=== PATIENT | female | born 1945 | race Caucasian/White ===

== ENCOUNTER 2017-08-22 10:54 | Emergency (ER) | payer MEDICARE ==
[~2017-08-22] VITALS: Ht 162.6 cm; Wt 69.0 kg
[2017-08-22 11:05] VITALS: BP 119/68; PULSE 84; RESP 16; TEMP 99.1; O2SAT 98
--- NOTE | 2017-08-22 11:34 | PD ---
HPI Chief Complaint: Musculoskeletal Complaint Time Seen by Provider: 11:30 Travel History International Travel<30 days: No Contact w/Intl Traveler<30days: No Traveled to known affect area: No History of Present Illness HPI 71-year-old female patient with previous history of hypothyroidism, previous [place] , states that she just got off a cruise and yesterday started having sudden onset of right upper leg pains, the pain seems to radiate from the right anterior inguinal area towards the inner part of her thigh, has trouble with bending her knee and her hip because of pain. She denies any chest pains, shortness of breath, or any other symptoms. She talked to her primary care doctor and orthopedics doctor and was told to come to the ER to evaluate for DVT. Pain is rated at a 10 out of 10. Modifying Factors: Worse with bending hip and knee Associated Signs & Symptoms: Right leg pain Risk Factors: None PFSH Past Medical History Hx Anticoagulant Therapy: No Cardiovascular Problems: No (AR ?) Respiratory: Yes (asthma) ?: Not Past Surgical History Hysterectomy: Yes Social History Tobacco Use: No Allergies-Medications (Allergen,Severity, Reaction): Coded Allergies: Sulfa (Sulfonamide Antibiotics) (Verified Allergy, Intermediate, rash, ) Reported Meds & Prescriptions Reported Meds & Active Scripts Active Reported Nexium (Esomeprazole DR) 40 Mg Capdr 40 Mg PO DAILY Synthroid (Levothyroxine Sodium) 75 Mcg Tab 75 Mcg PO DAILY Review of Systems Except as stated in HPI: all other systems reviewed are Neg Physical Exam Narrative GENERAL: Well-developed elderly white female patient currently in mild distress. Awake and oriented 3. SKIN: Focused skin assessment warm/dry. HEAD: Atraumatic. Normocephalic. EYES: Pupils equal and round. No scleral icterus. No injection or drainage. ENT: No nasal bleeding or discharge. Mucous membranes pink and moist. NECK: Trachea midline. No JVD. Supple. CARDIOVASCULAR: Regular rate and rhythm. No murmur appreciated. RESPIRATORY: No accessory muscle use. Clear to auscultation. Breath sounds equal bilaterally. GASTROINTESTINAL: Abdomen soft, non-tender, nondistended. Hepatic and splenic margins not palpable. MUSCULOSKELETAL: No obvious deformities. No clubbing. No cyanosis. No edema. EXTREMITIES: No clubbing, cyanosis, or edema. No joint tenderness, effusion, or edema noted. No calf or posterior knee tenderness. She is tender palpation in the right anterior inguinal area going down the inner part of her thigh with no significant edema or palpable cords. NEUROLOGICAL: Awake and alert. No obvious cranial nerve deficits. Motor grossly within normal limits. Normal speech. PSYCHIATRIC: Appropriate mood and affect; insight and judgment normal. Data Data Last Documented VS Vital Signs Date Time Temp Pulse Resp B/P (MAP) Pulse Ox O2 Delivery O2 Flow Rate FiO2 08/22/17 11:05 99.1 84 16 119/68 (85) 98 Orders Orders Complete Blood Count With Diff (08/22/17 11:30) Basic Metabolic Panel (Bmp) (08/22/17 11:30) Prothrombin Time / Inr (Pt) (08/22/17 11:30) Act Partial Throm Time (Ptt) (08/22/17 11:30) Us Leg Venous Doppler (08/22/17 11:30) Hip, Uni(Ap&Lat) W Ap Pelvis (08/22/17 11:30) Ed Discharge Order (08/22/17 12:37) Labs Laboratory Tests Test 08/22/17 12:00 White Blood Count 5.6 TH/MM3 Red Blood Count 4.24 MIL/MM3 Hemoglobin 11.9 GM/DL Hematocrit 36.7 % Mean Corpuscular Volume 86.6 FL Mean Corpuscular Hemoglobin 28.0 PG Mean Corpuscular Hemoglobin Concent 32.4 % Red Cell Distribution Width 12.8 % Platelet Count 300 TH/MM3 Mean Platelet Volume 7.6 FL Neutrophils (%) (Auto) 47.6 % Lymphocytes (%) (Auto) 36.0 % Monocytes (%) (Auto) 10.2 % Eosinophils (%) (Auto) 4.2 % Basophils (%) (Auto) 2.0 % Neutrophils # (Auto) 2.7 TH/MM3 Lymphocytes # (Auto) 2.0 TH/MM3 Monocytes # (Auto) 0.6 TH/MM3 Eosinophils # (Auto) 0.2 TH/MM3 Basophils # (Auto) 0.1 TH/MM3 CBC Comment DIFF FINAL Differential Comment Prothrombin Time 10.3 SEC Prothromb Time International Ratio 1.0 RATIO Activated Partial Thromboplast Time 24.7 SEC Blood Urea Nitrogen 13 MG/DL Creatinine 0.93 MG/DL Random Glucose 101 MG/DL Calcium Level 8.4 MG/DL Sodium Level 140 MEQ/L Potassium Level 4.3 MEQ/L Chloride Level 106 MEQ/L Carbon Dioxide Level 28.2 MEQ/L Anion Gap 6 MEQ/L Estimat Glomerular Filtration Rate 59 ML/MIN MDM Medical Decision Making Medical Screen Exam Complete: Yes Emergency Medical Condition: Yes Medical Record Reviewed: Yes Interpretation(s) Laboratory Tests Test 08/22/17 12:00 Monocytes (%) (Auto) 10.2 % (0.0-8.0) Eosinophils (%) (Auto) 4.2 % (0.0-4.0) Calcium Level 8.4 MG/DL (8.5-10.1) Estimat Glomerular Filtration Rate 59 ML/MIN (>89) Last 24 hours Impressions Lower Extremity Ultrasound 08/22/17 1130 Signed Impressions: Service Date/Time: Tuesday, August 22, 2017 12:13 - CONCLUSION: Negative exam with no evidence of deep venous thrombosis. Da Ac MD Hip and Pelvis X-Ray 08/22/17 1130 Signed Impressions: Service Date/Time: Tuesday, August 22, 2017 11:36 - CONCLUSION: The right hip is intact. Da Ac MD Differential Diagnosis Right leg pains: DVT versus groin strain versus arthritis Narrative Course Ultrasound shows no signs of DVT. X-ray did not show any significant acute bony injuries. Story is much more consistent with a groin strain. At this point, my plan would be to give her symptomatic relief or pain, muscle relaxant , released with follow-up to primary care doctor. Return for any worsening in symptoms as necessary. The plan has been discussed with her and she states understanding. Diagnosis Primary Impression: Strain of right knee and leg Med/Other Pt SpecificInfo: Prescription(s) given Scripts Cyclobenzaprine (Flexeril) 10 Mg Tab 10 MG PO TID for Muscle Spasm, #20 TAB 0 Refills Prov: Shannen Hardy MD 08/22/17 Ibuprofen (Ibuprofen) 600 Mg Tab 600 MG PO Q6H Y for Pain/Inflammation, #20 TAB 0 Refills Prov: Shannen Hardy MD 08/22/17 Disposition: 01 DISCHARGE HOME Condition: Stable Shannen Hardy MD Aug 22, 2017 11:34
[2017-08-22] MEDS ORDERED: NEXI40CA PO (11:52)
[2017-08-22] MEDS ORDERED: LEVO.075 PO (11:52)
--- NOTE | 2017-08-22 11:57 | RADRPT ---
EXAM DATE/TIME: 08/22/2017 11:36 [facility] COMPARISON: No previous studies available for comparison. INDICATIONS : Right hip pain w/ no known injury. Patient states it's painful when bending hip, yet it is tolerable while straight out. MEDICAL HISTORY : Hypothyroidism. Myocardial infarction. Asthma. SURGICAL HISTORY : Hysterectomy. Fusion, lumbar. ENCOUNTER: Initial ACUITY: 4 - 6 days PAIN SCORE: 10/10 LOCATION: Right hip FINDINGS: Examination of the right hip was performed with AP Pelvis. The primary and secondary trabecular marlena juan a of the femoral neck is intact. The hip joint is of normal width without significant sclerosis or bony hypertrophy. The acetabulum is grossly intact. Postoperative changes are noted in the lower jake mbar spine status post fusion with bone grafting material and pedicle screws. CONCLUSION: The right hip is intact. Da Ac MD on August 22, 2017 at 11:54 Board Certified Radiologist. This report was verified electronically.
[2017-08-22 12:14] LABS: AUTOMATED NEUTROPHIL # 2.7 TH/MM3 (1.8-7.7); BASOPHIL # 0.1 TH/MM3 (0-0.2); EOSINOPHIL # 0.2 TH/MM3 (0-0.4); EOSINOPHIL % 4.2 % (0.0-4.0); HEMATOCRIT 36.7 % (35.0-46.0); HEMOGLOBIN 11.9 GM/DL (11.6-15.3); MEAN CELL VOLUME 86.6 FL (80.0-100.0); MEAN CORPUSCULAR HGB CONC 32.4 % (32.0-36.0); MEAN PLATELET VOLUME 7.6 FL (7.0-11.0); MONO % 10.2 % (0.0-8.0); MONOCYTE # 0.6 TH/MM3 (0-0.9); NEUT % 47.6 % (16.0-70.0); PLATELET COUNT 300 TH/MM3 (150-450); RED BLOOD COUNT 4.24 MIL/MM3 (4.00-5.30); RED CELL DISTRIBUTION WIDTH 12.8 % (11.6-17.2); WHITE BLOOD COUNT 5.6 TH/MM3 (4.0-11.0)
[2017-08-22 12:27] LABS: CALCIUM 8.4 MG/DL (8.5-10.1)
[2017-08-22 12:28] LABS: BICARBONATE 28.2 MEQ/L (21.0-32.0); PROTHROMBIN TIME - PATIENT 10.3 SEC (9.8-11.6)
[2017-08-22 12:31] LABS: CREATININE 0.93 MG/DL (0.50-1.00)
--- NOTE | 2017-08-22 12:31 | RADRPT ---
EXAM DATE/TIME: 08/22/2017 12:13 [facility] COMPARISON: No previous studies available for comparison. INDICATIONS : Right leg pain. MEDICAL HISTORY : Hypothyroidism. Myocardial infarction. Asthma. SURGICAL HISTORY : Hysterectomy. ENCOUNTER: Initial ACUITY: 1 day PAIN SCORE: 3/10 LOCATION: Right leg. TECHNIQUE: Venous ultrasound of the leg was performed from the inguinal ligament to the proximal calf. Real-griselda e, color Doppler and spectral tracing, compression and augmentation techniques were used. FINDINGS: There is normal compressibility of the deep venous system from the inguinal region to the proximal ca lf. No echogenic clot is seen in the lumen of the common femoral, femoral, popliteal, and posterior tibial veins. There is a normal response of the venous system to proximal and distal augmentation an d respiration. CONCLUSION: Negative exam with no evidence of deep venous thrombosis. Da Ac MD on August 22, 2017 at 12:29 Board Certified Radiologist. This report was verified electronically.
[2017-08-22] MEDS ORDERED: IBUP-232 PO (12:39)
[2017-08-22] MEDS ORDERED: CYCL10TA PO (12:39)
[2017-08-22 12:57] VITALS: BP 118/62
== END 2017-08-22 13:00 | disposition home or self-care (01) ==
LOC: PHED 10:54
DX: S86.911A Strain of unspecified muscle(s) and tendon(s) at lower leg level, right leg, initial encounter (principal); E03.9 Hypothyroidism, unspecified; J45.909 Unspecified asthma, uncomplicated; X58.XXXA Exposure to other specified factors, initial encounter; Z79.899 Other long term (current) drug therapy; Z88.2 Allergy status to sulfonamides
CPT/HCPCS: 73502; 80048; 85025; 85610; 85730; 93971; 99285